=== PATIENT | male | born 1975 | race Asian ===

== ENCOUNTER 2022-06-14 03:29 | Emergency (ER) | payer SELFPAY ==
[~2022-06-14] VITALS: Ht 182.9 cm; Wt 89.8 kg
--- NOTE | 2022-06-14 03:57 | NUR ---
Pt is noted in bed alert, responsive as he came in C/O off Left Sholuder Dislocation due to S/P Fall at home. His care continue as he is due XR-Left Shoulder .
--- NOTE | 2022-06-14 04:15 | NUR ---
Pt is been discharge to home stable as X-Ray came back normal.
[2022-06-14 04:16] VITALS: BP 119/84
== END 2022-06-14 04:18 | disposition home or self-care (01) ==
LOC: ER 03:31
DX: M25.512 Pain in left shoulder (principal)
CPT/HCPCS: 73030-TC